=== PATIENT | female | born 1985 | race American Indian/Alaskan Native ===

== ENCOUNTER 2016-12-21 11:08 | Emergency (ER) | payer OTHER ==
[2016-12-21 11:23] VITALS: BP 105/68
--- NOTE | 2016-12-21 12:05 | Emergency Department Report ---
Entered by MURIEL VERDUGO, acting as scribe for LO MARTINI PA. HPI - General Chief Complaint: Sore Throat Time Seen by Provider: 12/21/16 11:43 - HPI HPI: 31 year old female patient presents for evaluation of sore throat for 3 days. Pt rates the pain as 6/10 with burning sensation. She reports associated symptoms of painful swallowing, but she denies cough, chest pain, SOB, fever and chills. No known drug allergies. ED Past Medical Hx - Past Medical History Previous Medical History?: Yes Additional medical history: vaginal delivery x 2 - Surgical History Past Surgical History?: Yes Additional Surgical History: implenon insertion to left arm - Social History Smoking Status: Never Smoker Substance Use Type: Non Opiate Pain - Medications Home Medications: Home Medications Medication Instructions Recorded Confirmed Last Taken Type Amoxicillin [Amoxicillin TAB] 875 mg PO BID #20 tablet 12/21/16 Unknown Rx ED Review of Systems ROS: Stated complaint: SORE THROAT Other details as noted in HPI Comment: All other systems reviewed and negative Constitutional: denies: chills, fever Eyes: denies: eye pain, eye discharge, vision change ENT: throat pain, other (pain with swallowing). denies: ear pain Respiratory: denies: cough, shortness of breath, wheezing Cardiovascular: denies: chest pain Endocrine: no symptoms reported Gastrointestinal: denies: abdominal pain, nausea, vomiting, diarrhea Musculoskeletal: denies: back pain, joint swelling, arthralgia Skin: denies: rash Neurological: denies: headache, weakness Hematological/Lymphatic: denies: easy bleeding, easy bruising Physical Exam - Physical Exam Vital Signs: Vital Signs 12/21/16 11:19 Temperature 97.9 F Pulse Rate 70 Respiratory 18 Rate Blood Pressure 105/68 O2 Sat by Pulse 100 Oximetry General: General: No Limitations, alert, in no apparent distress Physical Exam: - Head Exam: atraumatic, normocephalic - Eye exam: Normal appearance - ENT exam: mucous membranes moist, no pharyngeal exudate or erythema. Uvula is midline and oral airway is patent. No facial swelling. No peritonsillar abscesses. -Neck exam: Normal inspection, no lymphadenopathy. No tenderness - Respiratory exam: normal lung sounds bilaterally. No respiratory distress - Cardiovascular Exam: Regular rate, normal rhythm. No systolic murmur, diastolic murmur, rubs, or gallop - GI/Abdominal Exam: Abdomen is soft, normal bowel sounds. - Extremities Exam: normal inspection - Back Exam: normal inspection - Neurological Exam: Present: alert, oriented X3 - Skin exam: warm, dry, intact, normal color. No rash. -Psychiatric exam: Present: normal affect, normal mood ED Course Vital Signs 12/21/16 11:19 Temperature 97.9 F Pulse Rate 70 Respiratory 18 Rate Blood Pressure 105/68 O2 Sat by Pulse 100 Oximetry Critical care attestation.: If time is entered above; I have spent that time in minutes in the direct care of this critically ill patient, excluding procedure time. ED Disposition Clinical Impression: Pharyngitis Disposition: DISCHARGED TO HOME OR SELFCARE Is pt being admited?: No Condition: Stable Instructions: Pharyngitis (ED) Referrals: PRIMARY CARE,MD [Primary Care Provider] - 3-5 Days This documentation as recorded by the KARTIK calvillo JASMINE,accurately reflects the service I personally performed and the decisions made by me,LO MARTINI PA.
== END 2016-12-21 12:30 | disposition home or self-care (01) ==
LOC: ED 11:08
DX: J02.9 Acute pharyngitis, unspecified (principal)
CPT/HCPCS: 99282

== ENCOUNTER 2017-06-28 11:13 | Emergency (ER) | payer OTHER ==
[2017-06-28 11:24] VITALS: BP 104/66
--- NOTE | 2017-06-28 13:47 | Emergency Department Report ---
Minor Respiratory - HPI Chief Complaint: Earache Stated Complaint: RIGHT EAR AND WRIST PAIN Time Seen by Provider: 06/28/17 13:01 Duration: 3 Days Pain Location: Ear (right ear) Severity: severe (8/10) Minor Respiratory: Yes Rhinorrhea (nasal congestion), Yes Able to Tolerate Fluids, Yes Ear Pain (RT ear), No Sore Throat, No Cough, No Sick Contacts, No Hemoptysis, No Chest Pain, No Shortness of Breath, No Fever Other History: Patient here complaining of right ear pain since Monday. She says she works outside at [employer] and there is lots of noise in her ears feel clogged pain is 8 out of 10 to her right ear .she is also complaining of nasal congestion and drainage. Denies any coughing or shortness of breath. Denies any fever or chills. Pain is achy and she says she hasn't taken any medication. Nothing makes it better and nothing makes it worse. She is also complaining of pain to her right wrist after lifting all day at work. Denies any radiation of pain. Denies any direct trauma. Pain is 2 out of 10 and feels achy. Denies any redness or swelling. ED Review of Systems ROS: Stated complaint: RIGHT EAR AND WRIST PAIN Other details as noted in HPI Comment: All other systems reviewed and negative Constitutional: no symptoms reported Eyes: denies: eye pain, eye discharge ENT: ear pain, congestion. denies: throat pain, dental pain, hearing loss Respiratory: no symptoms reported Cardiovascular: denies: chest pain, palpitations, edema, syncope Gastrointestinal: denies: abdominal pain, nausea, vomiting, diarrhea, constipation Musculoskeletal: arthralgia. denies: back pain, joint swelling, myalgia Skin: denies: rash Neurological: denies: headache, numbness, paresthesias, confusion, abnormal gait , vertigo ED Past Medical Hx - Past Medical History Previous Medical History?: No Additional medical history: vaginal delivery x 2 - Surgical History Past Surgical History?: No Additional Surgical History: implenon insertion to left arm - Family History Family history: no significant - Social History Smoking Status: Never Smoker Substance Use Type: None - Medications Home Medications: Home Medications Medication Instructions Recorded Confirmed Last Taken Type Amoxicillin [Amoxicillin TAB] 875 mg PO BID #20 tablet 12/21/16 Unknown Rx Cetirizine HCl [ZyrTEC] 10 mg PO QAM 14 Days #14 capsule 06/28/17 Unknown Rx Fluticasone [Flonase] 1 spray NS QDAY 14 Days #1 bottle 06/28/17 Unknown Rx Naproxen 500 mg PO Q12H PRN 5 Days #10 06/28/17 Unknown Rx tablet Minor Respiratory Exam - Exam General: Vital signs noted. No distress. Alert and acting appropriately. Is a 31-year-old female well-nourished well-developed in no acute distress HEENT: Yes Moist Mucous Membranes, Yes Rhinorrhea (pale and boggy), No Pharyngeal Erythema, No Pharyngeal Exudates, No Conjuctival Injection, No Frontal Tenderness, No Maxillary Tenderness Ear: Both TM Bulge (bilateral TM congested without any erythema), Neither TM Erythema, Neither EAC Pain, Neither EAC Discharge Neck: Yes Supple (Full range of motion, no C-spine tenderness), No Adenopathy Lungs: Yes Good Air Exchange, No Wheezes, No Ronchi, No Stridor, No Cough, No Labored Respirations, No Retractions, No Use of Accessory Muscles, No Other Abnormal Lung Sounds Heart: Yes Regular, No Murmur Abdomen: Yes Normal Bowel Sounds, No Tenderness, No Peritoneal Signs Skin: No Rash, No Edema Neurologic: Alert and oriented 3, normal gait. Musculoskeletal: Past 5/5 strength in all extremities. No joint , crepitus or restriction in movement. No joint erythema or effusion noted. Extremity: No clubbing, cyanosis or edema. Positive pulses all extremities. Patient with full range of motion to all extremities. She reports that when she flex and extend her right wrist. Patient is without any snuffbox tenderness or no pain with axial thumb movement. Normal wrist exam. +2 pulses in all extremities. ED Course Vital Signs 06/28/17 11:22 Temperature 98.4 F Pulse Rate 75 Respiratory 20 Rate Blood Pressure 104/66 O2 Sat by Pulse 100 Oximetry - Reevaluation(s) Reevaluation #1: 06/28/17 14:07 Patient had uneventful ED stay uneventful ED Medical Decision Making - Medical Decision Making ED course: JUDY inhibitor complaint a right ear ache and right wrist pain. She states she works outside with [employer] and she thinks that his left increased noise and cold. This has been going on for 3 days per patient and she also reports that she was lifting heavy object and her right wrist began to hurt. Physical findings for congested ears without any erythema, nasal mucosa pale and boggy with clear drainage and bilateral wrist without any swelling, erythema. She has normal pulses and no neurovascular compromise. She said her right wrist is painful when she moves it. Patient with arthralgia right wrist and otalgia right ear secondary to allergic rhinitis. This was discussed patient and I told her that she needs to wear wrist brace which she can buy at the pharmacy if she is going to be lifting heavy objects at work. I discussed with her that if she continues to hurt she is to follow-up with orthopedic doctor. Patient was on the fender discharge diagnosis and treatment plan and discharged home with prescription for Zyrtec, Flonase and naproxen. Critical care attestation.: If time is entered above; I have spent that time in minutes in the direct care of this critically ill patient, excluding procedure time. ED Disposition Clinical Impression: Otalgia, right ear, Arthralgia of right wrist Allergic rhinitis Qualifiers: Chronicity: acute Allergic rhinitis trigger: unspecified Allergic rhinitis seasonality: unspecified seasonality Qualified Code(s): J30.9 - Allergic rhinitis, unspecified Disposition: DC-01 TO HOME OR SELFCARE Is pt being admited?: No Does the pt Need Aspirin: No Condition: Stable Instructions: Earache (ED), Allergic Rhinitis (ED), Arthralgia (ED) Additional Instructions: Please avoid lifting heavy objects for the next 5 days. Wear wrist splint that he can buy [id number] to pharmacy to immobilize here for wrist when you're work Take Zyrtec and Flonase daily for allergic rhinitis and this will help her urinary earache. Take naproxen as prescribed distal help with wrist pain and also ear pain. Follow-up with orthopedic doctor if you continue to have wrist pain. Prescriptions: Cetirizine HCl [ZyrTEC] 10 mg PO QAM 14 Days #14 capsule Fluticasone [Flonase] 1 spray NS QDAY 14 Days #1 bottle Naproxen 500 mg PO Q12H PRN 5 Days #10 tablet PRN Reason: Pain Referrals: PRIMARY CAREMD [Primary Care Provider] - 07/03/17 JUWAN CLEMENTE MD [Staff Physician] - 2-3 Days Forms: Work/School Release Form(ED)
== END 2017-06-28 14:37 | disposition home or self-care (01) ==
LOC: ED 11:13
DX: J30.9 Allergic rhinitis, unspecified (principal); M25.531 Pain in right wrist; H92.01 Otalgia, right ear
CPT/HCPCS: 99282

== ENCOUNTER 2017-11-29 09:28 | Emergency (ER) | payer SELFPAY ==
[2017-11-29 09:42] VITALS: BP 116/82
--- NOTE | 2017-11-29 12:31 | Emergency Department Report ---
ED General Adult HPI - General Chief complaint: Dental/Oral Stated complaint: FOREIGN BODY THROAT Time Seen by Provider: 11/29/17 12:08 Source: patient Mode of arrival: Ambulatory Limitations: No Limitations - History of Present Illness Initial comments: 32-year-old [place] female comes in with the complaint of feeling flu skin is stuck when she swallows and that it feels like it takes for Noel to go down. Patient reports this is been going on intermittently for 1 week. Patient reports that she is noticed some upper anterior neck swelling this is been going on for over a year. Patient denies any fever or chills she does admit to nausea denies any vomiting she is able to drink fluids. She also complains of a mild epigastric pain and she reports it feels like food gets stuck. Patient does admit to answer reflux. Patient denies any past medical history currently takes no medications and has no known drug allergies. -: week(s) (food getting stuck ), year(s) (over a year for upper anterior neck swelling) Location: neck Severity scale (0 -10): 0 Quality: dull Consistency: intermittent Associated Symptoms: denies other symptoms Treatments Prior to Arrival: none - Related Data Previous Rx's Medication Instructions Recorded Last Taken Type Amoxicillin [Amoxicillin TAB] 875 mg PO BID #20 tablet 12/21/16 Unknown Rx Cetirizine HCl [ZyrTEC] 10 mg PO QAM 14 Days #14 capsule 06/28/17 Unknown Rx Fluticasone [Flonase] 1 spray NS QDAY 14 Days #1 bottle 06/28/17 Unknown Rx Naproxen 500 mg PO Q12H PRN 5 Days #10 06/28/17 Unknown Rx tablet Allergies Allergy/AdvReac Type Severity Reaction Status Date / Time No Known Allergies Allergy Verified 06/28/17 11:22 ED Review of Systems ROS: Stated complaint: FOREIGN BODY THROAT Other details as noted in HPI Constitutional: denies: chills, fever Eyes: denies: eye pain, eye discharge, vision change ENT: other (feeling of food getting stuck in her throat but able to swallow but takes a long time.) Respiratory: denies: cough, shortness of breath, wheezing Cardiovascular: denies: chest pain, palpitations Gastrointestinal: abdominal pain (intermittent epigastric irritation), nausea. denies: vomiting Genitourinary: denies: urgency, dysuria, discharge Neurological: denies: headache, weakness, paresthesias Psychiatric: denies: anxiety, depression ED Past Medical Hx - Past Medical History Previous Medical History?: No Additional medical history: vaginal delivery x 2 - Surgical History Past Surgical History?: No Additional Surgical History: implenon insertion to left arm - Social History Smoking Status: Current Every Day Smoker Substance Use Type: None - Medications Home Medications: Home Medications Medication Instructions Recorded Confirmed Last Taken Type Amoxicillin [Amoxicillin TAB] 875 mg PO BID #20 tablet 12/21/16 Unknown Rx Cetirizine HCl [ZyrTEC] 10 mg PO QAM 14 Days #14 capsule 06/28/17 Unknown Rx Fluticasone [Flonase] 1 spray NS QDAY 14 Days #1 bottle 06/28/17 Unknown Rx Naproxen 500 mg PO Q12H PRN 5 Days #10 06/28/17 Unknown Rx tablet ED Physical Exam - General Limitations: No Limitations - Head Head exam: Present: atraumatic, normocephalic - Eye Eye exam: Present: normal appearance - ENT ENT exam: Present: normal orophraynx, mucous membranes moist, other (patent oropharynx, no swelling no redness no retained food) - Neck Neck exam: Present: full ROM, other (mild tenderness to the anterior). Absent: tenderness - Respiratory Respiratory exam: Present: normal lung sounds bilaterally. Absent: respiratory distress - Cardiovascular Cardiovascular Exam: Present: regular rate, normal rhythm. Absent: systolic murmur, diastolic murmur, rubs, gallop - GI/Abdominal GI/Abdominal exam: Present: soft, normal bowel sounds. Absent: distended, tenderness, guarding, rebound - Extremities Exam Extremities exam: Present: normal inspection - Neurological Exam Neurological exam: Present: alert, oriented X3 - Psychiatric Psychiatric exam: Present: normal affect, normal mood - Skin Skin exam: Present: warm, dry, intact, normal color. Absent: rash ED Course Vital Signs 11/29/17 09:36 Temperature 98.6 F Pulse Rate 79 Respiratory 16 Rate Blood Pressure 116/82 O2 Sat by Pulse 99 Oximetry ED Medical Decision Making - Medical Decision Making Patient has been evaluated by this provider fast track. Patient is able to drink fluids as well as food. Discussed with patient that she needs to follow up with gastroenterology. Discussed the patient she can take protein shakes milkshakes drink plenty of fluids. I will refer patient to [facility]. Patient is stable to be discharged home vital signs are within normal limits. Critical care attestation.: If time is entered above; I have spent that time in minutes in the direct care of this critically ill patient, excluding procedure time. ED Disposition Clinical Impression: Difficulty swallowing solids Disposition: DC-01 TO HOME OR SELFCARE Is pt being admited?: No Does the pt Need Aspirin: No Condition: Stable Additional Instructions: Please increase her fluid intake he can add milkshakes or protein shakes. Please follow-up [facility] for full workup and management. I have listed their information below. Referrals: PRIMARY CARE, [Primary Care Provider] - 3-5 Days [facility] [Provider Group] - 3-5 Days Forms: Work/School Release Form(ED)
== END 2017-11-29 12:45 | disposition home or self-care (01) ==
LOC: ED 09:28
DX: R13.12 Dysphagia, oropharyngeal phase (principal); F17.200 Nicotine dependence, unspecified, uncomplicated
CPT/HCPCS: 99282

== ENCOUNTER 2018-03-15 09:50 | Emergency (ER) | payer SELFPAY ==
[2018-03-15 10:10] VITALS: BP 109/66
--- NOTE | 2018-03-15 11:05 | Emergency Department Report ---
ED ENT HPI - General Chief complaint: Sore Throat Stated complaint: THROAT PAIN Time Seen by Provider: 03/15/18 10:52 Source: patient Mode of arrival: Ambulatory Limitations: No Limitations - History of Present Illness Initial comments: This is a 32-year-old -[place] female presents to the emergency room with complaints of swelling and irritation of the road for 3-4 months. Patient states she initially was seen here in November of this year and referred to [facility] for further evaluation. Patient states she went to [facility] last week and they told her to get an ultrasound of neck and follow-up with them with results. She states they oren labs but wouldn't give her the results this morning. Patient denies tongue swelling, sore throat, or difficulty swallowing. MD complaint: other (mass on neck) Onset/Timin -: month(s) Location: other (neck) Severity: mild Severity scale (0 -10): 0 Consistency: constant Improves with: none Worsens with: none - Related Data Previous Rx's Medication Instructions Recorded Last Taken Type Amoxicillin [Amoxicillin TAB] 875 mg PO BID #20 tablet 12/21/16 Unknown Rx Cetirizine HCl [ZyrTEC] 10 mg PO QAM 14 Days #14 capsule 06/28/17 Unknown Rx Fluticasone [Flonase] 1 spray NS QDAY 14 Days #1 bottle 06/28/17 Unknown Rx Naproxen 500 mg PO Q12H PRN 5 Days #10 06/28/17 Unknown Rx tablet Allergies Allergy/AdvReac Type Severity Reaction Status Date / Time No Known Allergies Allergy Verified 06/28/17 11:22 ED Dental HPI - General Chief complaint: Sore Throat Stated complaint: THROAT PAIN Time Seen by Provider: 03/15/18 10:52 Source: patient Mode of arrival: Ambulatory Limitations: No Limitations - Related Data Previous Rx's Medication Instructions Recorded Last Taken Type Amoxicillin [Amoxicillin TAB] 875 mg PO BID #20 tablet 12/21/16 Unknown Rx Cetirizine HCl [ZyrTEC] 10 mg PO QAM 14 Days #14 capsule 06/28/17 Unknown Rx Fluticasone [Flonase] 1 spray NS QDAY 14 Days #1 bottle 06/28/17 Unknown Rx Naproxen 500 mg PO Q12H PRN 5 Days #10 06/28/17 Unknown Rx tablet Allergies Allergy/AdvReac Type Severity Reaction Status Date / Time No Known Allergies Allergy Verified 06/28/17 11:22 ED Review of Systems ROS: Stated complaint: THROAT PAIN Other details as noted in HPI Constitutional: denies: chills, fever ENT: denies: ear pain, throat pain, congestion Respiratory: denies: cough, shortness of breath, wheezing Cardiovascular: denies: chest pain, palpitations Gastrointestinal: denies: abdominal pain, nausea, diarrhea Skin: lesions (swelling and/or mass to neck). denies: rash Neurological: denies: headache, weakness, paresthesias Psychiatric: denies: anxiety, depression ED Past Medical Hx - Past Medical History Previous Medical History?: No Additional medical history: vaginal delivery x 2 - Surgical History Past Surgical History?: Yes Additional Surgical History: implenon insertion to left arm - Social History Smoking Status: Never Smoker Substance Use Type: None - Medications Home Medications: Home Medications Medication Instructions Recorded Confirmed Last Taken Type Amoxicillin [Amoxicillin TAB] 875 mg PO BID #20 tablet 12/21/16 Unknown Rx Cetirizine HCl [ZyrTEC] 10 mg PO QAM 14 Days #14 capsule 06/28/17 Unknown Rx Fluticasone [Flonase] 1 spray NS QDAY 14 Days #1 bottle 06/28/17 Unknown Rx Naproxen 500 mg PO Q12H PRN 5 Days #10 06/28/17 Unknown Rx tablet ED Physical Exam - General Limitations: No Limitations General appearance: alert, in no apparent distress - Neck Neck exam: Present: full ROM, thyromegaly (swelling to lower thyroid on right side, nontender). Absent: tenderness, meningismus - Respiratory Respiratory exam: Present: normal lung sounds bilaterally. Absent: respiratory distress - Cardiovascular Cardiovascular Exam: Present: regular rate, normal rhythm. Absent: systolic murmur, diastolic murmur, rubs, gallop - GI/Abdominal GI/Abdominal exam: Present: soft, normal bowel sounds - Back Exam Back exam: Present: normal inspection - Neurological Exam Neurological exam: Present: alert, oriented X3 - Psychiatric Psychiatric exam: Present: normal affect, normal mood - Skin Skin exam: Present: warm, dry, intact, normal color. Absent: rash ED Course Vital Signs 03/15/18 03/15/18 10:06 13:29 Temperature 98.7 F Pulse Rate 64 61 Respiratory 18 18 Rate Blood Pressure 109/66 O2 Sat by Pulse 100 100 Oximetry ED Medical Decision Making - Lab Data Lab Results 03/15/18 Range/Units 12:11 TSH 0.375 (0.270-4.200) mlU/mL - Radiology Data Radiology results: report reviewed, image reviewed ULTRASOUND THYROID SCAN History: Palpable nodule. Findings: The right lobe measures 4.4 x 1.4 x 1.3 cm. No cyst or mass. The left thyroid lobe measures 3.6 x 1.6 x 1.7 cm. A 1.2 cm predominantly cystic mass is identified near the inferior pole of the left thyroid lobe. There appears to be a second solid masslike lesion either adjacent to the inferior pole of the left thyroid lobe or is exophytic from the left thyroid lobe. This masslike lesion measures 6.5 x 3.0 x 5.9 cm. It is unclear if this is thyroid in origin. The thyroid isthmus is normal measuring 3 mm. IMPRESSION: Normal right thyroid lobe. Predominantly cystic lesion at the inferior pole of the left thyroid lobe measuring 1.2 cm. There is also an adjacent solid lesion which is exophytic from the left thyroid lobe or a separate mass measuring 6.5 x 3.0 x [address] neck with contrast for further characterization. - Medical Decision Making Patient was examined by me. Vitals are normal and patient is in no acute distress. Obtained TSH and US of thyroid. TSH normal. Normal right thyroid lobe. Predominantly cystic lesion at the inferior pole of the left thyroid lobe measuring 1.2 cm. There is also an adjacent solid lesion which is exophytic from the left thyroid lobe or a separate mass measuring 6.5 x 3.0 x [address] neck with contrast for further characterization. Patient informed of results. Referral to endocrinology and f/u with [facility] for outpatient CT of neck with contrast and management of care. Patient discharged home in stable condition. Follow up with PCP in 2-3 days. Critical care attestation.: If time is entered above; I have spent that time in minutes in the direct care of this critically ill patient, excluding procedure time. ED Disposition Clinical Impression: Cyst of thyroid, Mass in neck Disposition: - TO HOME OR SELFCARE Is pt being admited?: No Does the pt Need Aspirin: No Condition: Stable Additional Instructions: Follow-up with tow bar driver from referrals. Please take a copy of the report given from ultrasound today to [facility] for further management. Have CT of neck with contrast for a definitive diagnosis with outpatient clinic. Referrals: PRIMARY CARE,MD [Primary Care Provider] - 3-5 Days [facility] [Outside] - 3-5 Days [facility] [Provider Group] - 3-5 Days Forms: Work/School Release Form(ED) Time of Disposition: 13:18 Print Language: SETSWANA
--- NOTE | 2018-03-15 12:15 | Ultrasound Report ---
ULTRASOUND THYROID SCAN History: Palpable nodule. Findings: The right lobe measures 4.4 x 1.4 x 1.3 cm. No cyst or mass. The left thyroid lobe measures 3.6 x 1.6 x 1.7 cm. A 1.2 cm predominantly cystic mass is identified near the inferior pole of the left thyroid lobe. There appears to be a second solid masslike lesion either adjacent to the inferior pole of the left thyroid lobe or is exophytic from the left thyroid lobe. This masslike lesion measures 6.5 x 3.0 x 5.9 cm. It is unclear if this is thyroid in origin. The thyroid isthmus is normal measuring 3 mm. IMPRESSION: Normal right thyroid lobe. Predominantly cystic lesion at the inferior pole of the left thyroid lobe measuring 1.2 cm. There is also an adjacent solid lesion which is exophytic from the left thyroid lobe or a separate mass measuring 6.5 x 3.0 x [address] neck with contrast for further characterization.
== END 2018-03-15 13:29 | disposition home or self-care (01) ==
LOC: ED 09:50
DX: E04.1 Nontoxic single thyroid nodule (principal); R22.1 Localized swelling, mass and lump, neck; Z79.899 Other long term (current) drug therapy
CPT/HCPCS: 36415; 76536; 84443

== ENCOUNTER 2021-04-04 00:04 | Emergency (ER) | payer SELFPAY ==
[2021-04-04 02:00] VITALS: BP 118/45
== END 2021-04-04 11:36 | disposition left against medical advice (07) ==
LOC: ED 00:04
DX: Z04.1 Encounter for examination and observation following transport accident (principal); Z53.21 Procedure and treatment not carried out due to patient leaving prior to being seen by health care provider; V87.7XXA Person injured in collision between other specified motor vehicles (traffic), initial encounter; Y93.89 Activity, other specified; Y92.488 Other paved roadways as the place of occurrence of the external cause; Y99.8 Other external cause status

== ENCOUNTER 2021-09-22 19:55 | Emergency (ER) | payer SELFPAY ==
[2021-09-22 21:49] VITALS: BP 115/76
[2021-09-22] MEDS ORDERED: diphenhydrAMINE 50 MG/ML VIAL IV ONE (22:25)
[2021-09-22] MEDS ORDERED: SODIUM CHLORIDE 0.9% 1000 ML 1,000 ML IV ONE (22:25)
[2021-09-22] MEDS ORDERED: METOCLOPRAMIDE 10 MG/2 ML INJ IV ONE (22:25)
--- NOTE | 2021-09-22 22:42 | Emergency Department Report ---
ED N/V/D HPI - General Chief complaint: Nausea/Vomiting/Diarrhea Stated complaint: NAUSEA (7 WKS ) Time Seen by Provider: 09/22/21 22:24 Source: patient Mode of arrival: Ambulatory Limitations: No Limitations - History of Present Illness Initial comments: Patient 35-year-old -[place] female who presents with nausea vomiting x3 days. Patient is 7 weeks . Last menstrual cycle 08/03/2021. Patient states positive home test. 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 Patient denies fevers or chills, no back pain no dysuria no vaginal bleeding no abdominal pain. Symptoms are exacerbated by p.o. intake. Symptoms are relieved by nothing tried. MD complaint: nausea, vomiting - Related Data Previous Rx's Medication Instructions Recorded Last Taken Type Amoxicillin [Amoxicillin TAB] 875 mg PO BID #20 tablet 12/21/16 Unknown Rx Cetirizine HCl [ZyrTEC] 10 mg PO QAM 14 Days #14 capsule 06/28/17 Unknown Rx Fluticasone [Flonase] 1 spray NS QDAY 14 Days #1 bottle 06/28/17 Unknown Rx Naproxen 500 mg PO Q12H PRN 5 Days #10 06/28/17 Unknown Rx tablet Metoclopramide [Reglan] 10 mg PO Q6H PRN #30 tablet 09/23/21 Unknown Rx diphenhydrAMINE [Benadryl CAP] 25 mg PO QHS PRN #30 capsule 09/23/21 Unknown Rx Allergies Allergy/AdvReac Type Severity Reaction Status Date / Time No Known Allergies Allergy Verified 06/28/17 11:22 ED Review of Systems ROS: Stated complaint: NAUSEA (7 WKS ) Other details as noted in HPI Constitutional: denies: chills, fever Eyes: denies: eye pain, eye discharge, vision change ENT: denies: ear pain, throat pain Respiratory: denies: cough, shortness of breath, wheezing Cardiovascular: denies: chest pain, palpitations Endocrine: no symptoms reported Gastrointestinal: nausea, vomiting. denies: abdominal pain, diarrhea, constipation Genitourinary: denies: urgency, dysuria, frequency, hematuria, discharge, dyspareunia Musculoskeletal: denies: back pain, joint swelling, arthralgia Skin: denies: rash, lesions Neurological: denies: headache, weakness, paresthesias, vertigo Psychiatric: denies: anxiety, depression Hematological/Lymphatic: denies: easy bleeding, easy bruising ED Past Medical Hx - Past Medical History Previous Medical History?: No Additional medical history: vaginal delivery x 2 - Surgical History Past Surgical History?: Yes Additional Surgical History: implenon insertion to left arm - Social History Smoking Status: Never Smoker Substance Use Type: None - Medications Home Medications: Home Medications Medication Instructions Recorded Confirmed Last Taken Type Amoxicillin [Amoxicillin TAB] 875 mg PO BID #20 tablet 12/21/16 Unknown Rx Cetirizine HCl [ZyrTEC] 10 mg PO QAM 14 Days #14 capsule 06/28/17 Unknown Rx Fluticasone [Flonase] 1 spray NS QDAY 14 Days #1 bottle 06/28/17 Unknown Rx Naproxen 500 mg PO Q12H PRN 5 Days #10 06/28/17 Unknown Rx tablet Metoclopramide [Reglan] 10 mg PO Q6H PRN #30 tablet 09/23/21 Unknown Rx diphenhydrAMINE [Benadryl CAP] 25 mg PO QHS PRN #30 capsule 09/23/21 Unknown Rx ED Physical Exam - General Limitations: No Limitations General appearance: alert, in no apparent distress - Head Head exam: Present: atraumatic, normocephalic - Eye Eye exam: Present: normal appearance, EOMI Pupils: Present: normal accommodation - ENT ENT exam: Present: mucous membranes moist - Neck Neck exam: Present: normal inspection, full ROM. Absent: tenderness - Respiratory Respiratory exam: Present: normal lung sounds bilaterally. Absent: respiratory distress, wheezes, stridor, chest wall tenderness - Cardiovascular Cardiovascular Exam: Present: regular rate, normal rhythm, normal heart sounds. Absent: systolic murmur, diastolic murmur, rubs, gallop - GI/Abdominal GI/Abdominal exam: Present: soft, normal bowel sounds. Absent: distended, tenderness, bruit, hernia - Rectal Rectal exam: Present: deferred - External exam: Present: other (deferred ) - Extremities Exam Extremities exam: Present: normal inspection, full ROM, normal capillary refill - Back Exam Back exam: Present: normal inspection, full ROM. Absent: tenderness, CVA tenderness (R), CVA tenderness (L) - Neurological Exam Neurological exam: Present: alert, oriented X3, CN II-XII intact, normal gait - Expanded Neurological Exam Expanded Patient oriented to: Present: person, place, time Speech: Present: fluid speech Best Eye Response (Atlas): (4) open spontaneously Best Motor Response (Atlas): (6) obeys commands Best Verbal Response (David): (5) oriented David Total: 15 - Psychiatric Psychiatric exam: Present: normal affect, normal mood - Skin Skin exam: Present: warm, dry, intact, normal color. Absent: rash ED Course Vital Signs 09/22/21 21:48 Temperature 98.4 F Pulse Rate 61 Respiratory 16 Rate Blood Pressure 115/76 [Right] O2 Sat by Pulse 100 Oximetry ED Medical Decision Making - Lab Data Labs 09/22/21 Unknown Urine Color Yellow Urine Turbidity Clear Urine pH 5.0 Ur Specific [place] 1.015 Urine Protein <15 mg/dl Urine Glucose (UA) Negative Urine Ketones Trace Urine Blood Negative Urine Nitrite Ne4g Ur Reducing Substances Not Reportable Urine Ictotest Not Reportable Urine Urobilinogen < 2.0 Ur Leukocyte Esterase Moderate Urine WBC (Auto) 4.0 Urine RBC (Auto) 4.0 U Epithel Cells (Auto) 21.0 H Urine Bacteria (Auto) 1+ Urine Mucus Few - Medical Decision Making Patient declines blood work for labs. Patient advises she defers to [employer]PERATOR follow- up. Symptoms are improved with medications given in ED. Patient tolerating p.o. intake without nausea vomiting at this time. UA noted positive for leukocytes. Plan treat for dysuria, follow-up with VIBRATING SCREED OPERATOR tomorrow as scheduled. Return to emergency department should symptoms worsen. Continue to hydrate as directed. Patient signed out AMA at this time, pt is currently alert oriented x3 patient demonstrates sound decision-making capacity. Patient signed out AMA at this time will follow-up with [employer] AND MAINTENANCE TECHNICIAN in the morning. Patient currently appears nontoxic, well-hydrated, well-nourished and with no acute distress. Pt verbalized agreement and understanding with follow up and AMA decision. Critical care attestation.: If time is entered above; I have spent that time in minutes in the direct care of this critically ill patient, excluding procedure time. ED Disposition Clinical Impression: Nausea vomiting and diarrhea Disposition: 07 LEFT AGAINST MEDICAL ADVICE Is pt being admited?: No Does the pt Need Aspirin: No Condition: Undetermined Instructions: Food Choices to Help Relieve Diarrhea, Adult, Vomiting, Adult Additional Instructions: Follow-up with your PLANT AND MAINTENANCE TECHNICIAN tomorrow return to emergency department should symptoms worsen. Prescriptions: diphenhydrAMINE [Benadryl CAP] 25 mg PO QHS PRN #30 capsule PRN Reason: Nausea Metoclopramide [Reglan] 10 mg PO Q6H PRN #30 tablet PRN Reason: Nausea And Vomiting Referrals: JESSE TOBIAS MD [Staff Physician] - [facility] Forms: Work/School Release Form(ED) Time of Disposition: 00:26
[2021-09-22 23:03] LABS: Bacteria,Urine 1+ /HPF (Negative); Mucus,Urine FEW /HPF
[2021-09-22 23:31] LABS: Blood,Urine Negative (Negative); Color,Urine Yellow (Yellow)
[2021-09-22 23:32] LABS: Protein,Urine <15 mg/dL mg/dL (Negative); Urobilinogen,Urine < 2.0 mg/dL (<2.0)
== END 2021-09-23 01:55 | disposition left against medical advice (07) ==
LOC: ED 19:55
DX: O21.9 Vomiting of pregnancy, unspecified (principal); Z3A.01 Less than 8 weeks gestation of pregnancy; O26.891 Other specified pregnancy related conditions, first trimester; R19.7 Diarrhea, unspecified
CPT/HCPCS: 81001; 96361; 96374; 96375; 99283; J1200; J2765; J7030; Q0162